=== PATIENT | male | born 1950 | race Caucasian/White ===

== ENCOUNTER 2023-09-08 14:40 | Day surgery (SDC) | payer MEDICARE, BC ==
[~2023-09-08] VITALS: Ht 175.3 cm; Wt 91.4 kg
[2023-09-08] VITALS (8 sets, daily range): BP systolic 112–155; BP diastolic 60–85; PULSE 63–80; RESP 12–23; TEMP 98; O2SAT 92–97
[2023-09-08] MEDS ORDERED: verapamil 2.5 mg/ml inj IV ONE (15:02)
[2023-09-08] MEDS ORDERED: LIDOcaine 1% (10mg/ml) 2ml vial ONE (15:02)
[2023-09-08] MEDS ORDERED: midazolam 1 mg/ML 2ml injection ONE ×2 (15:03→16:38)
[2023-09-08] MEDS ORDERED: heparin 1,000unit/ml 10ml vial 10 ML ONE (15:03)
[2023-09-08] MEDS ORDERED: iohexol 350MG/ML 100ml bottle IV ONE (15:03)
[2023-09-08] MEDS ORDERED: nitroGLYCERIN 500mcg/5mL D5W 5 ML IV ONE (15:03)
[2023-09-08] MEDS ORDERED: fentaNYL/PF 50MCG/1 ML 2ML syringe ONE (15:03)
[2023-09-08] MEDS ORDERED: normal saline 1,000 ML IV SCH (15:05)
[2023-09-08] MEDS ORDERED: diphenhydrAMINE 25mg capsule PO PRN (15:05)
[2023-09-08] MEDS ORDERED: LORazepam 0.5 MG tablet PO PRN (15:05)
[2023-09-08] MEDS ORDERED: FLO0.4C PO (15:51)
[2023-09-08] MEDS ORDERED: RIFA550T PO (15:51)
[2023-09-08] MEDS ORDERED: SPIR100T5 PO (15:51)
[2023-09-08] MEDS ORDERED: MAGN400C PO (15:51)
[2023-09-08] MEDS ORDERED: LACT10SO3 PO (15:51)
[2023-09-08] MEDS ORDERED: OMEP40CA21 PO (15:51)
[2023-09-08] MEDS ORDERED: VITA1CAP PO (15:51)
[2023-09-08] MEDS ORDERED: VENL75TA4 PO (15:51)
[2023-09-08] MEDS ORDERED: PREN1TAB79 PO (15:51)
[2023-09-08] MEDS ORDERED: FURO-149 PO (15:51)
[2023-09-08] MEDS ORDERED: METF-1203 PO (15:51)
[2023-09-08] MEDS ORDERED: HYDR-3973 PO (15:51)
[2023-09-08 16:23] LABS: HEMOGLOBIN 14.1 g/dl (14.0-17.9); LYMPHOCYTES # (AUTO) 0.8 X10'3 (1.1-4.8); MEAN CORPUSCULAR VOLUME 101.7 FL (78-98); MONOCYTES # (AUTO) 0.5 X10'3 (0-0.9); MONOCYTES % (AUTO) 9.9 % (2-12)
[2023-09-08 16:25] LABS: BASOPHILS % (AUTO) 0.3 % (0-1); HEMATOCRIT 40.4 % (42.0-52.0); LYMPHOCYTES % (AUTO) 16.9 % (21-51); MEAN CORPUSCULAR HEMOGLOBIN 35.5 PG (27.0-31.0); MEAN CORPUSCULAR HGB CONC 34.9 g/dL (33.0-36.5); NEUTROPHILS # (AUTO) 3.6 X10'3 (1.8-7.7); NEUTROPHILS % (AUTO) 71.9 % (42-75); PLATELET COUNT 74 X10'3 (140-440); RED BLOOD COUNT 3.97 X10'6 (4.70-6.10); RED CELL DISTRIBUTION WIDTH 13.8 % (11.5-14.5)
[2023-09-08] MEDS ORDERED: HYDROmorphone 1 mg/ml syringe ONE (16:33)
[2023-09-08] MEDS ORDERED: diphenhydrAMINE 50 mg/ml inj ONE (16:36)
[2023-09-08 16:38] LABS: ALBUMIN 2.5 G/DL (3.4-5.0); ANION GAP 2 (8-16); BLOOD UREA NITROGEN 16 MG/DL (7-18); BUN/CREATININE RATIO 17.6 (10.0-20.0); CALCIUM 8.9 MG/DL (8.5-10.1); CHLORIDE 109 MMOL/L (99-107); CHOL/HDL RATIO 2.2 (0.00-4.99); CHOLESTEROL 136 MG/DL (0-200); CREATININE 0.91 MG/DL (0.60-1.10); GLUCOSE 86 MG/DL (70-104); HDL CHOLESTEROL 62 MG/DL (35-60); LDL CHOLESTEROL 63 MG/DL (50-100); POTASSIUM 4.1 MMOL/L (3.5-5.1); SODIUM 144 MMOL/L (135-145); TOTAL CARBON DIOXIDE 33.1 MMOL/L (24-32); TRIGLYCERIDES 59 MG/DL (20-135); eCRCL 72 ML/MIN; eGFR 82 ML/MIN
[2023-09-08 16:53] LABS: APTT 25 SECONDS (22-32); INR 1.2 INR; PROTHROMBIN TIME 13.2 SECONDS (9.0-12.0)
[2023-09-08] MEDS ORDERED: HYDROcodone/acetaminophen 5mg/325mg tablet PO PRN (17:25)
[2023-09-08] MEDS ORDERED: ondansetron/PF 4mg/2ml inj IV PRN (17:25)
[2023-09-08] MEDS ORDERED: HYDROcodone/acetaminophen 10/325mg tab PO PRN (17:25)
[2023-09-08] MEDS ORDERED: acetaminophen 325mg tablet PO PRN (17:25)
[2023-09-08] MEDS ORDERED: proCHLORperazine 10 MG/2 ml inj IV PRN (17:25)
[2023-09-08] MEDS ORDERED: OXAZEpam 15mg capsule PO PRN (17:25)
== END 2023-09-08 19:05 | disposition home or self-care (01) ==
LOC: SSTAY O 14:40
PROVIDERS: ATTEND Student in an Organized Health Care Education/Training Program
DX: R94.30 Abnormal result of cardiovascular function study, unspecified (principal); I25.10 Atherosclerotic heart disease of native coronary artery without angina pectoris; E11.9 Type 2 diabetes mellitus without complications; I10 Essential (primary) hypertension; I48.0 Paroxysmal atrial fibrillation; K74.60 Unspecified cirrhosis of liver; Z79.899 Other long term (current) drug therapy; Z79.01 Long term (current) use of anticoagulants; Z88.8 Allergy status to other drugs, medicaments and biological substances
CPT/HCPCS: 36415; 80048; 80061; 85025; 85610; 85730; 93005; 93458; 99152; 99153; A6258; J1170; J1644; J2250; J3010; J3490; J7030; Q9967; A6402; C1894; J1200